=== PATIENT | female | born 1960 | race Caucasian/White ===

== ENCOUNTER 2016-12-19 08:10 | Day surgery (SDC) | payer OTHER ==
[~2016-12-19] VITALS: Ht 157.5 cm; Wt 118.0 kg
[~2016-12-19 08:10] MED LIST: 0.9% Sodium Chloride 1,000 ML IV SCH; LISI1TAB11 PO; Sodium Chloride LOK Flush 10 mL Syringe IV PRN; fentaNYL-PF 50 mCg/mL 2 mL Inj IVPUSH PRN
[2016-12-19] MEDS ORDERED: ASPI-973 PO (08:46)
[2016-12-19] MEDS ORDERED: HYDR12.55 PO (08:46)
[2016-12-19] MEDS ORDERED: LOSA25TA21 PO (08:46)
[2016-12-19 08:47] VITALS: BP 143/75; PULSE 52; RESP 14; O2SAT 98
[2016-12-19 09:37] VITALS: BP 122/67; PULSE 56; RESP 16; O2SAT 100
[2016-12-19 09:48] VITALS: BP 138/69; PULSE 56; RESP 16; O2SAT 100
--- NOTE | 2016-12-19 09:52 | ENDO ---
[address] [address] ENDOSCOPY PROCEDURE PATIENT: FLAQUITO CONSTANTINO : 1960 MR#: [id number] ADMIT: 12/19/2016 JOB ID: [id number] DATE: 12/19/2016 PRIMARY PROVIDER: Claudine Sharma PROCEDURE: Colonoscopy. INDICATIONS: A 56-year-old female with a personal history of colon polyps and a family history of colon cancer reporting for surveillance. EQUIPMENT: PCF H 180 AL. SEDATION: 1. 4 mg Versed. 2. 100 mcg fentanyl. COMPLICATIONS: None identified. BOWEL PREPARATION: Fair, adequate examination. PROCEDURAL INFORMATION: After the risks and benefits were explained, written and verbal informed consent was obtained. The patient was brought into the endoscopy suite and placed into the left lateral decubitus position. Sedation was achieved as above. A digital rectal examination accomplished. No significant pathology appreciated. The scope was introduced into the rectum and advanced to the cecum as identified by the appendiceal orifice and ileocecal valve. The scope was slowly withdrawn to carefully examine the mucosa for any defects or lesions. Retroflexed views were accomplished in the rectum. The colon was decompressed. The scope removed from the patient who tolerated the procedure well. FINDINGS: In the sigmoid colon at about 30 cm from the anal verge, there was an approximately 1 cm submucosal lipoma that demonstrated the classic pillow sign. Otherwise no significant pathology was appreciated throughout including retroflexed views from within the rectum. ENDOSCOPIC DIAGNOSIS: 1. Sigmoid lipoma. 2. Otherwise visually unremarkable colonoscopy. RECOMMENDATIONS: Repeat colonoscopy in five years considering personal and family history.
[2016-12-19 09:53] VITALS: BP 136/69; PULSE 53; RESP 16; O2SAT 100
== END 2016-12-19 23:59 | disposition home or self-care (01) ==
LOC: END 08:10
PROVIDERS: ATTEND Internal Medicine Gastroenterology
DX: Z12.11 Encounter for screening for malignant neoplasm of colon (principal); D17.79 Benign lipomatous neoplasm of other sites; Z86.010 Personal history of colon polyps; Z80.0 Family history of malignant neoplasm of digestive organs
CPT/HCPCS: 99153; G0105; G0500; J2250; J3010; J7030